=== PATIENT | female | born 1990 | race Caucasian/White ===

== ENCOUNTER 2019-12-21 00:20 | Emergency (ER) | payer OTHER ==
[~2019-12-21] VITALS: Ht 160 cm; Wt 63.5 kg
[2019-12-21 00:20] VITALS: BP 120/81
--- NOTE | 2019-12-21 00:20 | NUR ---
PT BIB [facility], PREBOOK. TAKEN TO CHAIR C
[2019-12-21 00:55] VITALS: BP 120/81
--- NOTE | 2019-12-21 00:55 | NUR ---
Patient discharged with v/s stable. Written and verbal after care instructions given and explained. Patient verbalized understanding. Police with in custody. All questions addressed prior to discharge. Advised to follow up with PMD. DR. CROW ASSESSED AND D/C PT
== END 2019-12-21 00:55 ==
LOC: MED 00:20
DX: Z02.89 Encounter for other administrative examinations (principal); Z04.1 Encounter for examination and observation following transport accident
CPT/HCPCS: 99283